=== PATIENT | male | born 1935 ===

== ENCOUNTER → 2017-04-11 | Outpatient (CLI) | payer OTHER, MEDICARE | LOC: BHFA 13:00 | PROVIDERS: ATTEND Internal Medicine Cardiovascular Disease | DX: J45.909 Unspecified asthma, uncomplicated (principal) | CPT/HCPCS: 94070; J7674 ==

== ENCOUNTER 2017-10-25 07:40 | Day surgery (SDC) | payer OTHER, MEDICARE ==
[2017-10-25] MEDS ORDERED: VANCOMYCIN PHARMACY TO DOSE MISC ONE (08:18)
[2017-10-25] MEDS ORDERED: LR 1,000 ML IV ONE (08:19)
[2017-10-25] MEDS ORDERED: LIDOCAINE 1% 2 ML INJ ID PRN (08:19)
[2017-10-25] MEDS ORDERED: VANCOMYCIN 1.25 GM in NS 250 ML IV ONE (08:30)
--- NOTE | 2017-10-25 09:40 | PDANEPAE ---
ANE History of Present Illness L possible B laparoscopic IH repair ANE Past Medical History - Cardiovascular History Hx Hypertension: Yes Hx Arrhythmias: No Hx Chest Pain: No Hx Coronary Artery / Peripheral Vascular Disease: Yes Hx CHF / Valvular Disease: No Hx Palpitations: No Cardiovascular History Comment: STENTS 2006 - Pulmonary History Hx COPD: No Hx Asthma/Reactive Airway Disease: No Hx Recent Upper Respiratory Infection: No Hx Oxygen in Use at Home: No Hx Sleep Apnea: No Sleep Apnea Screening Result - Last Documented: Positive - Neurologic History Hx Cerebrovascular Accident: No Hx Seizures: No Hx Dementia: No - Endocrine History Hx Diabetes: No - Renal History Hx Renal Disorders: Yes Renal History Comment: NOCTURIA - Liver History Hx Hepatic Disorders: No - Neurological & Psychiatric Hx Hx Neurological and Psychiatric Disorders: No - Cancer History Hx Cancer: No - Congenital Disorder History Hx Congenital Disorders: No - GI History Hx Gastrointestinal Disorders: Yes Gastrointestinal History Comment: GERD - Other Health History Other Health History: OSTEOARTHRITIS - Chronic Pain History Chronic Pain: Yes (LT INQUINAL AREA) - Surgical History Prior Surgeries: CARDIAC STENTS. VASECTOMY ANE Review of Systems Review of systems is: negative Review of Systems: - Exercise capacity METS (RN): 4 METS ANE Patient History - Allergies Allergies/Adverse Reactions: amoxicillin [Amoxicillin] Allergy (Verified 10/22/17 11:39) Rash cephalexin [Cephalexin] Allergy (Verified 10/22/17 11:39) Rash Sulfa (Sulfonamide Antibiotics) Allergy (Verified 10/22/17 11:39) Rash - Home Medications Home medications: home medication list seen and reviewed Home Medications: Aspirin [Aspirin 81mg] 81 mg PO DAILY 05/22/11 [Last Taken Unknown] Cyanocobalamin [Vitamin B-12] 200 mcg PO DAILY 05/22/11 [Last Taken 10/24/17] Fluticasone Hfa 44 Mcg [Flovent Hfa] 2 puffs IH BID 05/22/11 [Last Taken ] Lisinopril/Hydrochlorothiazide [Lisinopril-Hctz 10-12.5 mg Tab] 1 each PO DAILY06 05/22/11 [Last Taken 10/24/17] Lovastatin 20 mg PO HS 05/22/11 [Last Taken 10/24/17] Metoprolol Tartrate 25 mg PO DAILY06 05/22/11 [Last Taken 10/24/17] Montelukast Sodium [Singulair] 10 mg PO DAILY06 05/22/11 [Last Taken 10/24/17] Pantoprazole Sodium [Protonix] 40 mg PO DAILY06 05/22/11 [Last Taken 10/24/17] Herbals/Supplements -Info Only DAILY 10/22/17 [Last Taken 10/24/17] - NPO status NPO Status: no food or drink >8 hours NPO Since - Liquids (Date): 10/24/17 NPO Since - Liquids (Time): 00:00 NPO Since - Solids (Date): 10/24/17 NPO Since - Solids (Time): 20:00 - Smoking Hx Smoking Status: Never smoked - Family Anes Hx Family Hx Anesthesia Complications: NEG ANE Labs/Vital Signs - Vital Signs Blood Pressure: 142/95 Heart Rate: 65 Respiratory Rate: 18 O2 Sat (%): 96 Height: 180.34 cm Weight: 79.379 kg ANE Physical Exam - Airway Neck exam: FROM Mallampati Score: Class 3 Mouth exam: normal dental/mouth exam - Pulmonary Pulmonary: no respiratory distress - Cardiovascular Cardiovascular: regular rate and rhythym - ASA Status ASA Status: III ANE Anesthesia Plan Anesthesia Plan: general endotracheal anesthesia
[2017-10-25] MEDS ORDERED: MIDAZOLAM 2 MG/2 ML VIAL IVP ONE (09:41)
--- NOTE | 2017-10-25 10:24 | PDHPUP ---
History & Physical Update H&P update statement: This history and physical update is based on an assessment of the patient which was completed after admission or registration (within 24 hours), but prior to the surgery/procedure. H&P update: H&P reviewed & patient examined, no change in patient's condition since H&P completed
[2017-10-25] MEDS ORDERED: ROCURONIUM 50 MG/5 ML VIAL ONE (10:49)
[2017-10-25] MEDS ORDERED: SUGAMMADEX SODIUM 200 MG/2 ML VIAL IVP ONE (10:49)
[2017-10-25] MEDS ORDERED: ONDANSETRON 4 MG/2 ML VIAL ONE (10:49)
[2017-10-25] MEDS ORDERED: LIDOCAINE 2% 100 MG/5 ML SYR ONE (10:49)
[2017-10-25] MEDS ORDERED: DEXAMETHASONE 4 MG/ML VIAL ONE (10:49)
[2017-10-25] MEDS ORDERED: fentaNYL 250 MCG/5 ML INJ ONE (10:50)
[2017-10-25] MEDS ORDERED: PROPOFOL 200 MG/20 ML VIAL ONE (10:50)
[2017-10-25] MEDS ORDERED: BUPIVACAINE 0.25% 30 ML SDV ONE (10:51)
[2017-10-25] MEDS ORDERED: hydrALAZINE 20 MG/ML VIAL ONE (11:32)
[2017-10-25] MEDS ORDERED: DEXAMETHASONE 4 MG/ML VIAL IVP PRN (11:47)
[2017-10-25] MEDS ORDERED: ACETAMINOPHEN 500 MG TAB PO PRN (11:47)
[2017-10-25] MEDS ORDERED: MEPERIDINE 25 MG/ML SYR IVP PRN (11:47)
[2017-10-25] MEDS ORDERED: ENALAPRILAT DIHYDRATE 1.25 MG/ML VIAL IVP PRN (11:47)
[2017-10-25] MEDS ORDERED: HYDROmorphONE/DILAUDID 1 MG/ML INJ IVP PRN (11:47)
[2017-10-25] MEDS ORDERED: fentaNYL 100 MCG/2 ML INJ IVP PRN (11:47)
[2017-10-25] MEDS ORDERED: NALOXONE HCL 0.4 MG/ML INJ IVP PRN (11:47)
[2017-10-25] MEDS ORDERED: OXYCODONE/APAP 5/325 TAB PO PRN (11:47)
[2017-10-25] MEDS ORDERED: LABETALOL HCL 5 MG/ML 20 ML MDV IVP PRN (11:47)
[2017-10-25] MEDS ORDERED: ONDANSETRON 4 MG/2 ML VIAL IVP PRN (11:47)
[2017-10-25] MEDS ORDERED: HYDROCODONE/APAP 5/325 TAB PO PRN (11:47)
[2017-10-25] MEDS ORDERED: PROMETHAZINE HCL 25 MG/ML INJ IVP PRN (11:47)
--- NOTE | 2017-10-25 12:09 | POSTOPPROG ---
Post Op Note Date of Operation: 10/25/17 Surgeon: Tate Cruz Client Insights Consultant: Lorenzo Anesthesiologist: Conchita Anesthesia: GET(General Endotracheal) Pre-op Diagnosis: Left inguinal hernia Post-op Diagnosis: same Indication: same Procedure: Laparoscopic left inguinal hernia Findings: Left direct inguinal hernia, no hernia noted on right Inf/Abcess present in the surg proc area at time of surgery?: No EBL: Minimal
--- NOTE | 2017-10-25 12:20 | POSTANESTH ---
Post Anesthetic Evaluation Cardiovascular Status: Similar to Pre-Op Cond Respiratory Status: Similar to Pre-op Cond. Level of Consciousness/Mental Status: Can Participate in Eval, Mildly Sleepy, Arousable Pain Control: Adequate, Prn Tx Ordered Nausea/Vomiting Control: Adequate, Prn Tx Ordered Complications Possibly Related to Anesthesia: None Noted
[2017-10-25 13:18] VITALS: TEMP 97.5
[2017-10-25] MEDS ORDERED: HYDROCODONE/APAP 5/325 TAB ONE (13:28)
[2017-10-25 14:07] VITALS: O2SAT 95
[2017-10-25 15:06] VITALS: RESP 18
[2017-10-25 16:15] VITALS: BP 145/67; PULSE 70
--- NOTE | 2017-10-26 14:44 | GOP ---
[f rep st] OPERATIVE REPORT DATE OF OPERATION: 10/25/2017 SURGEON: Tate Cruz MD COLLECTION TEAM LEAD: Elena Ventura NP ANESTHESIOLOGIST: Dr. Arango. PREOPERATIVE DIAGNOSIS: Left inguinal hernia. POSTOPERATIVE DIAGNOSIS: Left inguinal hernia. PROCEDURE PERFORMED: Laparoscopic left inguinal hernia repair with mesh, and exploration of the right side. FINDINGS: Patient was found to have a large direct hernia on the left. There was no evidence of herniation on the right. ESTIMATED BLOOD LOSS: Negligible. DESCRIPTION OF PROCEDURE: The patient was taken to the operating room, where he received satisfactory general endotracheal anesthesia by Dr. Arango. Placed in supine position, prepped and draped in usual sterile fashion. An infraumbilical incision was made. Dissection was carried down to the rectus sheath, which was incised. A subfascial tunnel was developed in the preperitoneal space that was dissected free with a balloon dissector and was replaced with a CO2 insufflation trocar. 2 other trocars placed in the lower and midline under direct vision. COOPERS ligament was exposed bilaterally. The cords were mobilized bilaterally. Peritoneum was dissected off the cord structures. There were no indirect sacs. On the right, there was no evidence of herniation. After exploration on the left, a large direct defect was reduced , its contents were reduced, and the edges of the fascial defect were exposed. A Covidien polyester patch was placed over the inguinal floor. It was anchored in place with an AbsorbaTack, anchoring it to Coopers ligament, to the lacunar ligament, to the anterior abdominal wall, and to the lateral abdominal wall outside the internal ring. Hemostasis was assured. Trocars were removed under direct vision. Pneumopreperitoneum was released. Trocar sites were closed with 0 Vicryl for the fascia, 4-0 Monocryl subcuticular stitch for the skin. All layers infiltrated 0.5% Marcaine. DISPOSITION: Taken to recovery room in good condition. /[id number]/MODL MTDD
== END 2017-10-25 16:16 | disposition home or self-care (01) ==
LOC: FSGY 07:40
PROVIDERS: ATTEND Surgery
PROC: 0YU64JZ Supplement Left Inguinal Region with Synthetic Substitute, Percutaneous Endoscopic Approach (ICD-10-PCS; principal; 2017-10-25 09:30)
DX: K40.90 Unilateral inguinal hernia, without obstruction or gangrene, not specified as recurrent (principal); I11.9 Hypertensive heart disease without heart failure; I25.10 Atherosclerotic heart disease of native coronary artery without angina pectoris; N40.0 Benign prostatic hyperplasia without lower urinary tract symptoms; E78.5 Hyperlipidemia, unspecified; E55.9 Vitamin D deficiency, unspecified; Z86.010 Personal history of colon polyps; Z95.5 Presence of coronary angioplasty implant and graft; Z88.0 Allergy status to penicillin; Z88.2 Allergy status to sulfonamides
CPT/HCPCS: C1727; C1781; J0360; J1100; J2001; J2405; J2704; J3010; J3370